=== PATIENT | female | born 1970 | race Caucasian/White ===

== ENCOUNTER 2023-05-20 08:15 | Day surgery (SDC) | payer OTHER ==
[~2023-05-20] VITALS: Ht 162.6 cm; Wt 56.8 kg
[2023-05-20] MEDS ORDERED: Budeprion Xl300 MG (08:33)
[2023-05-20] MEDS ORDERED: AMPDEX10CR (08:33)
--- NOTE | 2023-05-20 10:33 | NUR ---
05/20/23 1033 Claire Veliz PT'S IV D/C'D WITHOUT INCIDENT, CATH TIP INTACT, NO SWELLING NOTED.
== END 2023-05-20 10:33 | disposition home or self-care (01) ==
LOC: ORSCSDS 08:15
PROVIDERS: Internal Medicine Gastroenterology
PROC: 0DBM8ZX Excision of Descending Colon, Via Natural or Artificial Opening Endoscopic, Diagnostic (ICD-10-PCS; principal; 2023-05-20 09:30)
DX: Z12.11 Encounter for screening for malignant neoplasm of colon (principal); D12.4 Benign neoplasm of descending colon; K64.4 Residual hemorrhoidal skin tags; Z79.3 Long term (current) use of hormonal contraceptives; Z79.899 Other long term (current) drug therapy
CPT/HCPCS: 88305; J2704; J7120